=== PATIENT | male | born 1970 | race Caucasian/White ===

== ENCOUNTER 2019-06-10 09:30 | Day surgery (SDC) | payer BC ==
[~2019-06-10] VITALS: Ht 185.4 cm; Wt 99.8 kg
[~2019-06-10 09:30] MED LIST: BYSTOLIC5 MG PO; CARDURA1 MG PO; COZAAR100 MG PO; OMEPRAZOLE40 MG PO
[2019-06-10 09:50] LABS: HEMATOCRIT 42.1 % (42.0-54.0); HEMOGLOBIN 14.9 g/dL (13.5-17.5); MCH 30.5 pg (26.0-34.0); MCHC 35.4 g/dL (31.0-37.0); MCV 86.3 fL (80.0-100.0); MEAN PLATELET VOLUME 9.4 fL (7.4-10.4); RBC 4.88 10x6/uL (4.20-6.10); RDW 14.4 % (11.5-14.5); WBC 5.3 10x3/uL (4.8-10.8)
[2019-06-10 10:38] VITALS: BP 135/92; Ht 185.4 cm; Wt 99.8 kg
--- NOTE | 2019-06-10 15:45 | NUR ---
PT DC INSTRUCTIONS REVIEWED AT THIS TIME, PT VERBALIZES UNDERSTANDING. PT IV REMOVED AT THIS TIME, INTACT, NO REDNESS OR SWELLING NOTED AT SITE.
--- NOTE | 2019-06-14 09:04 | OP ---
PATIENT NAME: FABRIZIO JOHANSEN MEDICAL RECORD: [id number] :66 LOCATION:D.OPS ADMISSION DATE: SURGEON: SHREYA DENNEY DATE OF OPERATION: 06/10/2019 SURGEON: Shreya Denney DPM PREOPERATIVE DIAGNOSES: 1. Hallux abductovalgus deformity, right foot. 2. Neuroma, second intermetatarsal space, right foot. POSTOPERATIVE DIAGNOSES: 1. Hallux abductovalgus deformity, right foot. 2. Neuroma, second intermetatarsal space, right foot. PROCEDURES: 1. Doug-Roly bunionectomy, right foot. 2. Excision of neuroma, second intermetatarsal space, right foot. ANESTHESIA: Local with monitored anesthesia care. HEMOSTASIS: Pneumatic ankle tourniquet inflated to 250 mmHg. ESTIMATED BLOOD LOSS: Minimal. MATERIALS: One 2.5 mm [employer] screw, one [employer] staple. INJECTABLES: 30 mL of 0.5% bupivacaine plain. The patient has longstanding history of pain associated with both a neuroma and a bunion on the right foot. Conservative measures have failed to give him relief. He is here today for surgical correction. We have discussed the proposed procedures. Risks and benefits were discussed. Complications were reviewed. All questions were answered. He was appropriately consented for the above-mentioned procedures. The patient was brought in the operating room and placed on the operating table in a supine position. A timeout was called with Dr. Denney, who identified the patient, the surgical site, and the surgery to be performed. Once appropriate anesthesia was obtained, the foot was prepped and draped in the usual aseptic manner. The pneumatic ankle tourniquet was inflated to 250 mmHg on the well-padded right ankle. PROCEDURE #1: Doug-Roly bunionectomy, right foot. Attention was directed to the dorsal aspect of the first metatarsophalangeal joint where a 6 cm curvilinear incision was made just medial to the extensor hallucis longus tendon. This incision was carried deep to soft tissue with care being taken to retract all vital neurovascular structures. All bleeders were cauterized along the way. The first intermetatarsal space was then entered utilizing both sharp and blunt dissection. The fibular sesamoidal ligament was identified and sharply transected. The conjoined tendon of the adductor hallucis tendon was identified at the base of the proximal phalanx and sharply OPERATIVE REPORT [id number] HAILYFABRIZIO SOLANO transected. Attention was then directed to the dorsal aspect of the first metatarsophalangeal joint where the periosteum was reflected from the joint, thus revealing the hypertrophied medial eminence of the first metatarsal head and the joint itself. Utilizing a sagittal saw, the medial eminence was resected. Next, utilizing a sagittal saw, a V-shaped osteotomy was created in the head of the first metatarsal. This was a through and [id number] osteotomy with the apex oriented distally. The capital fragment was translocated laterally and impacted upon the first metatarsal shaft. Next, utilizing manufacture's recommended technique, one 2.5-mm screw was placed across the osteotomy. All remaining overhanging bone from the medial aspect of the first metatarsal shaft was removed with a bone saw. Attention was then directed to the dorsal aspect of the proximal phalanx where a V-shaped osteotomy was created in the great toe with the apex oriented laterally. The osteotomy was reduced and utilizing manufacture's recommended technique, one [employer] Staple was placed across the osteotomy. The surgical site was then irrigated with copious amounts of normal sterile saline via bulb syringe. The periosteum was then reapproximated and coapted using 3-0 Vicryl. The subQ was then reapproximated and coapted using 3-0 Vicryl. The skin was then reapproximated and coapted using 4-0 nylon. PROCEDURE #2: Excision of neuroma, second intermetatarsal space, right foot. Attention was directed to the dorsal aspect of the second intermetatarsal space where a 4-cm linear incision was made. This incision was carried deep to soft tissue with care being taken to retract all vital neurovascular structures. All bleeders were cauterized along the way. The deep transverse intermetatarsal ligament was identified and sharply transected. The neuroma was noted to lie beneath the deep transverse intermetatarsal ligament. Next, each digital branch of the nerve was traced into the lateral side of the second toe and medial side of the third toe. Each digital branch was then sharply transected. The nerve was then dissected proximally into the second metatarsal space as far as possible and sharply transected. The surgical site was then inspected for any remaining pathological tissue and none was noted. The surgical site was then irrigated with copious amounts of normal sterile saline. The subQ was then reapproximated and coapted using 3-0 Vicryl. The skin was then reapproximated and coapted using 4-0 nylon. A dressing consisting of Xeroform, 4 x 4's, Kerlix, and Coban were applied to the foot. The pneumatic ankle tourniquet was deflated and capillary refill time was immediate to all digits of the right foot. The patient tolerated the procedure and anesthesia well and left the operating room with vital signs stable and capillary refill time intact. The patient was discharged home with instructions to ice and elevate the right foot. He was dispensed a boot to further help offload the area. He has my cell phone number for any after-hours difficulties. He was provided with a prescription for [place] 7.5/325, Phenergan 25 mg, and ibuprofen 800 mg. There were no complications with this procedure and we will follow up with this gentleman next week. TRANSINT:[id number] Voice Confirmation ID: [id number] DOCUMENT ID: [id number] OPERATIVE REPORT [id number] FABRIZIO JOHANSEN DAVID J at 0904 CC: [id number] DICTATION DATE: 06/10/19 155 [employer] ATTACHER: 06/10/19 1648 [facility] 06/10/19 [place] [id number] [place] [id number]
== END 2019-06-10 15:55 | disposition home or self-care (01) ==
LOC: D.OPS 09:30 → D.PAN 12:00 → D.OPS 12:00
PROVIDERS: Anesthesiology; ATTEND Podiatrist
DX: M20.11 Hallux valgus (acquired), right foot (principal); G57.81 Other specified mononeuropathies of right lower limb